=== PATIENT | female | born 1970 | race Caucasian/White ===

== ENCOUNTER 2017-04-10 07:00 | Emergency (ER) | payer MEDICAID, OTHER ==
[~2017-04-10] VITALS: Ht 167.6 cm; Wt 104.6 kg
[2017-04-10 07:03] VITALS: Ht 167.6 cm; Wt 104.6 kg
--- NOTE | 2017-04-10 07:28 | ERD ---
ER Documentation Chief Complaint Chief Complaint Complains of right ankle pain x 2 days HPI This is a 47-year-old female presenting to the emergency department complaining of mild to moderate right ankle pain after a ground-level fall that occurred 2 days prior to being seen. Patient states that the pain is increased with certain movements, she complains of swelling. She denies the inability to walk. Patient has been walking her past 2 days and has been taking ibuprofen. ROS All systems reviewed and are negative except as per history of present illness. Medications Home Meds Active Scripts Ibuprofen* (Ibuprofen*) 400 Mg Tablet, 400 MG PO Q6H Y for PAIN, #30 TAB Prov:AILEEN WALLS PA-C 04/10/17 Reported Medications [None] No Conflict Check 10/03/11 Allergies Allergies: Coded Allergies: acetaminophen (Verified Allergy, Intermediate, Rash, 04/10/17) dextromethorphan (Verified Allergy, Intermediate, Rash, 04/10/17) diphenhydramine (Verified Allergy, Intermediate, Rash, 04/10/17) phenylephrine (Verified Allergy, Intermediate, Rash, 04/10/17) PMhx/Soc History of Surgery: Yes (TUBAL LIGATION) Anesthesia Reaction: No Hx Neurological Disorder: No Hx Respiratory Disorders: No Hx Cardiac Disorders: No Hx Psychiatric Problems: No Hx Miscellaneous Medical Probl: No Hx Alcohol Use: No Hx Substance Use: No Hx Tobacco Use: No Physical Exam Vitals Vital Signs Date Time Temp Pulse Resp B/P Pulse Ox O2 Delivery O2 Flow Rate FiO2 04/10/17 07:03 98.4 82 20 139/90 100 Physical Exam General: WD/WN, in no apparent distress, non-toxic appearing HENT: NC/AT Eyes: Conjunctiva normal Neck: Supple Pulm: Clear to auscultation, normal labored breathing; no wheezing/rales/ rhonchi heard CV: [Good capillary refill] GI: Non-distended, no guarding Back: No masses Ext: Nontender to palpation, she was able to walk 5 steps and more Neuro: [plantar reflex intact, patellar reflex intact, +2 pedal pulses bilaterally, sensation intact] Skin: [intact] Psych: [Normal mood] Procedures/MDM 47-year-old female presents to the ER with ankle pain due to an inversion injury , likely due to ankle sprain. There is no evidence of compartment syndrome, neurologic injury, vascular injury, open joint, open fracture, tendon laceration , or foreign body due to physical examination and diagnostic testing. XR of the ankle was not necessary as fracture risk is low, patient was able to walk and does not seem to be in significant pain, she had full range of motion. Patient was placed in jennyfer bandage. Patient's extremity symptoms have stabilized while they have been evaluated in the department and are appropriate for outpatient follow up. Prescription ibuprofen was given to patient, discussed to return to the ED if not improving as expected or worsening symptoms Patient was neurovascularly intact pre and post treatment. Patient understood and agreed with this plan. Departure Diagnosis: Primary Impression: Ankle pain Condition: Stable AILEEN WALLS PA-C Apr 10, 2017 07:28 OR 3. inability to take 4 complete steps both immediately and in ED AILEEN WALLS PA-C Apr 10, 2017 07:28
[2017-04-10] MEDS ORDERED: IBUP400T22 PO (07:29)
== END 2017-04-10 08:00 | disposition home or self-care (01) ==
LOC: FTE 07:00
DX: M25.571 Pain in right ankle and joints of right foot (principal)
CPT/HCPCS: 99283